=== PATIENT | male | born 1990 | race Caucasian/White ===

== ENCOUNTER → 2021-10-01 | Outpatient (CLI) | payer BC | LOC: M RAD 12:49 | PROVIDERS: ATTEND Physician Assistant Medical | DX: M25.539 Pain in unspecified wrist (principal) ==

== ENCOUNTER → 2024-03-12 | Outpatient (REF) | payer BC | LOC: M WUC 19:11 | PROVIDERS: ATTEND Registered Nurse | DX: J02.9 Acute pharyngitis, unspecified (principal) ==

== ENCOUNTER 2025-02-28 10:55 | Emergency (ER) | payer OTHER, BC ==
[~2025-02-28] VITALS: Ht 185.4 cm; Wt 88.7 kg
[2025-02-28] MEDS: LIDOCAINE 1% MDV 20 ML VIAL IM ONE (13:15)
[2025-02-28] MEDS: TETANUS/DIPHTH/ACEL. PERTUSSIS 0.5 ML SYR IM.IMMUN ONE (13:20)
[2025-02-28] MEDS: NEOSPORIN TOP OINT 15 GM TOP ONE (13:50)
[2025-02-28 14:08] VITALS: BP 150/68; TEMP 97.6; O2SAT 100
== END 2025-02-28 14:10 | disposition home or self-care (01) ==
LOC: M ED 10:55
DX: S51.012A Laceration without foreign body of left elbow, initial encounter (principal); W01.119A Fall on same level from slipping, tripping and stumbling with subsequent striking against unspecified sharp object, initial encounter; Y92.9 Unspecified place or not applicable; Y93.9 Activity, unspecified; Y99.0 Civilian activity done for income or pay; Z23 Encounter for immunization